=== PATIENT | male | born 1960 | race Caucasian/White ===

== ENCOUNTER 2016-09-24 05:00 | Day surgery (SDC) | payer BC ==
[2016-09-21 09:21] LABS: HEMATOCRIT 45.6 % (42.0-54.0); HEMOGLOBIN 15.8 g/dL (13.5-17.5); MCHC 34.6 g/dL (31.0-37.0); MCV 86.5 fL (80.0-100.0); MEAN PLATELET VOLUME 10.9 fL (7.4-10.4); RBC 5.27 10x6/uL (4.20-6.10); RDW 12.5 % (11.5-14.5); WBC 6.1 10x3/uL (4.8-10.8)
[2016-09-21 09:32] LABS: CALC OSMOLALITY 289 mosm/kg (275-300); CALCIUM 9.3 mg/dL (8.5-10.1); CARBON DIOXIDE 26.5 mmol/L (21.0-32.0); CHLORIDE - SERUM 107 mmol/L (98-107); GLUCOSE 118 mg/dL (74-106); POTASSIUM - SERUM 3.4 mmol/L (3.5-5.1); SODIUM 143 mmol/L (136-145); UREA NITROGEN 23 mg/dL (7-18); eGFR NON AFRICAN AMERICAN 81 mL/min (90-120)
[~2016-09-24] VITALS: Ht 177.8 cm; Wt 97.1 kg
[~2016-09-24 05:00] MED LIST: BAYER CHEWABLE81 MG PO; COZAAR100 MG PO; HCTZ25 MG PO
[2016-09-24 06:35] VITALS: BP 115/73; Ht 177.8 cm; Wt 97.1 kg
[2016-09-24] MEDS ORDERED: MIRALAX17 GM PO (08:30)
--- NOTE | 2016-09-24 10:23 | NUR ---
1015 DRESSED, AWAKE & ALERT. GIVEN D/C INFORMATION INCLUDING: [facility] OUTPATIENT D/C INSTRUCTIONS, MED REC, [facility] DISCHARGE INSTRUCTIONS FOR HEMORRHOIDECTOMY, SHEET LISTING NSAIDS TO AVOID. PT & VOICED UNDERSTANDING. TO PRIVATE CAR PER WHEELCHAIR BY THIS NURSE. HOME WITH MRS. GLOVER. Uzair AQUINO R.N.
--- NOTE | 2016-09-24 12:54 | OP ---
PATIENT NAME: BROOKE GLOVER MEDICAL RECORD: [id number] LOCATION:D.OPS ADMISSION DATE: SURGEON: CANDIDA OLIVAS MD DATE OF OPERATION: 09/24/2016 SURGEON: Candida Olivas MD. PREOPERATIVE DIAGNOSIS: 1. Painless rectal bleeding. 2. Screening for malignant neoplasm of colon. 3. Internal hemorrhoids. POSTOPERATIVE DIAGNOSES: 1. Painless rectal bleeding. 2. Screening for malignant neoplasm of colon. 3. Internal hemorrhoids. PROCEDURES PERFORMED: 1. Colonoscopy. 2. Internal hemorrhoid banding. ANESTHESIA: General. COMPLICATIONS: None. SPECIMENS: None. Case was contaminated. OPERATIVE COURSE: After consent was obtained, the patient was taken to the operating room. He was placed in supine position on the operating table. Next, general anesthesia was given via endotracheal intubation after a timeout was performed to confirm the correct patient and procedure. The perineum was prepped and draped in typical sterile fashion. Digital rectal exam was performed. No masses were identified. The colonoscope was inserted. The colon was insufflated, the colonoscope was advanced to the cecum. The ileocecal valve was identified and pictured. The appendiceal orifice again was identified and pictured. Approximately, 10 minutes was spent on withdrawal of the scope. Patient had no abnormalities identified on the colonoscope. There was no evidence of diverticular disease, no masses, no polyps, no stigmata of bleeding. Once the scope was in the rectum, the scope was retroflexed. Again, multiple internal hemorrhoids were identified on retroflexion of the scope. The scope was advanced back to the descending colon and desufflated. Colonoscope was then removed. A 20 cc of local anesthetic were injected circumferentially for a perineal block. The rectum was serially dilated using the [place] retractors. The patient had 2 prominent hemorrhoid groups, right posterior and left lateral. The right posterior column was grasped and banded. Internal hemorrhoid banding was performed on both the right posterior and left lateral compounds. At the end of the case, all needle and instruments counts were correct. No complications occurred. The patient was extubated and transferred to the PACU in stable condition. The patient will need a repeat colonoscopy in 5-10 years. TRANSINT:[id number] Voice Confirmation ID: [id number] DOCUMENT ID: [id number] OPERATIVE REPORT [id number] BROOKE GLOVER CANDIDA OLIVAS MD at 1254 CC: [id number] DICTATION DATE: 09/24/1628 SIGNALS OFFICER: 09/24/16 0948 [facility] 09/24/16 [id number] [place] [address]
== END 2016-09-24 10:15 | disposition home or self-care (01) ==
LOC: D.OPS 05:00 → D.PAN 07:30 → D.OPS 10:15
PROVIDERS: Anesthesiology
DX: Z12.11 Encounter for screening for malignant neoplasm of colon (principal); K64.8 Other hemorrhoids; I10 Essential (primary) hypertension; Z01.812 Encounter for preprocedural laboratory examination

== ENCOUNTER → 2017-06-20 15:54 | Outpatient (CLI) | payer BC ==
[2016-09-24 06:35] VITALS: BMI 30.7
[~2017-06-20 15:54] MED LIST changes: +MIRALAX17 GM PO
== END | disposition home or self-care (01) ==
LOC: D.LABREF 15:54
DX: M17.11 Unilateral primary osteoarthritis, right knee (principal); Z11.8 Encounter for screening for other infectious and parasitic diseases